=== PATIENT | male | born 2000 | race Hispanic/Latino ===

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

== ENCOUNTER 2021-04-27 19:00 | Emergency (ER) | payer OTHER ==
[2021-04-27] MEDS ORDERED: Acetaminophen 500 MG TAB ONE (19:18)
== END 2021-04-27 19:50 | disposition home or self-care (01) ==
LOC: NAV ERS 19:00
DX: L05.91 Pilonidal cyst without abscess (principal); R50.9 Fever, unspecified
CPT/HCPCS: 72170

== ENCOUNTER 2021-11-24 19:36 | Emergency (ER) | payer OTHER ==
[2021-11-24] MEDS ORDERED: Mag-Al Plus 1200 MG/1200 MG/120 MG/30 ML UDCUP ONE (20:13)
[2021-11-24] MEDS ORDERED: Lidocaine Viscous Sol 2% 15 ml UD Cup ONE (20:13)
== END 2021-11-24 20:20 | disposition home or self-care (01) ==
LOC: NAV ERS 19:36
DX: R10.13 Epigastric pain (principal); F41.9 Anxiety disorder, unspecified
CPT/HCPCS: 99283